=== PATIENT | female | born 1935 | race Caucasian/White ===

== ENCOUNTER 2016-12-31 13:50 | Inpatient (IN) | payer MEDICARE, OTHER ==
[~2016-12-31] VITALS: Ht 152.4 cm; Wt 42.6 kg
[2016-12-31 16:59] LABS: BASOPHILS 0.6 % (0.0-2.0); EOSINOPHILS 1.2 % (0-7); HEMATOCRIT 41.6 % (36.0-48.0); IMMATURE GRANULOCYTES 0.1 % (0-5); LYMPHOCYTES 20.3 % (15-50); MCH 31.6 pg (26.0-34.0); MCHC 33.7 g/dL (31.0-37.0); MCV 93.9 fL (80.0-100.0); MEAN PLATELET VOLUME 10.6 fL (7.4-10.4); MONOCYTES 11.9 % (2-11); NEUTROPHILS 65.9 % (40-80); PLATELET COUNT 242 10x3/uL (130-400); RBC 4.43 10x6/uL (4.00-5.40); RDW 14.2 % (11.5-14.5); WBC 10.2 10x3/uL (4.8-10.8)
[2016-12-31 17:07] LABS: UDS - AMPHET NEGATIVE QUAL (NEGATIVE); UDS - BARB NEGATIVE QUAL (NEGATIVE); UDS - BENZO NEGATIVE QUAL (NEGATIVE); UDS - COCAINE NEGATIVE QUAL (NEGATIVE); UDS - METH NEGATIVE QUAL (NEGATIVE); UDS - OPIATE NEGATIVE QUAL (NEGATIVE); UDS - PCP NEGATIVE QUAL (NEGATIVE); UDS - THC NEGATIVE QUAL (NEGATIVE)
[2016-12-31 17:08] LABS: APTT 26.6 SECONDS (22.8-39.4); INR 0.97 (0.85-1.17); PROTIME 12.8 SECONDS (11.6-15.0)
[2016-12-31 17:39] LABS: ALBUMIN 3.7 g/dL (3.4-5.0); ALKALINE PHOSPHATASE 72 U/L (46-116); ALT (SGPT) 31 U/L (10-68); BILIRUBIN - TOTAL 0.72 mg/dL (0.2-1.3); CALC OSMOLALITY 291 mosm/kg (275-300); CALCIUM 10.2 mg/dL (8.5-10.1); CARBON DIOXIDE 28.7 mmol/L (21.0-32.0); CHLORIDE - SERUM 106 mmol/L (98-107); CREATININE - SERUM 0.8 mg/dL (0.6-1.3); GLUCOSE 86 mg/dL (74-106); POTASSIUM - SERUM 3.8 mmol/L (3.5-5.1); PROTEIN - SERUM 7.3 g/dL (6.4-8.2); SODIUM 146 mmol/L (136-145); UREA NITROGEN 19 mg/dL (7-18); eGFR NON AFRICAN AMERICAN 72 mL/min (90-120)
[2016-12-31 18:01] LABS: CREATINE KINASE 295 UL (21-215)
[2016-12-31 18:07] LABS: TROPONIN-I < 0.017 ng/mL (0.000-0.060)
[2016-12-31 18:23] LABS: CKMB 4.2 U/L (0.0-3.6)
[2016-12-31 20:00] VITALS: BP 128/97
[2016-12-31 22:48] VITALS: BP 128/97; BMI 18.3
--- NOTE | 2017-01-01 02:26 | NUR ---
PATIENT ADMITTED FROM ER TO [facility]. SHE HAS A HISTORY OF FALLS, AND DEMENTIA, HAS BEEN WANDERING AT NIGHT. PATIENT HAS A FULL CODE STATUS AND IS ORIENTED TO SELF ONLY. PLEASANT AND COOPERATIVE.
--- NOTE | 2017-01-01 02:53 | NUR ---
PATIENT IN BED, ORIENTED TO SELF ONLY. SHE IS VERY CONFUSED, CONSTANTLY WORRIED SHE HAS WET THE BED. SHE HAS PULLED OFF SEVERAL PAIRS OF BRIEFS. WHEN TAKEN TO THE TOILET SHE KEEPS WIPING COMPULSIVELY AND WON'T GET OFF THE COMMODE. PATIENT REDIRECTED. CONTINUE TO MONITOR
[2017-01-01 06:44] LABS: HEMOGLOBIN A1C 4.9 % (4.8-6.0)
[2017-01-01 06:46] LABS: CHOL - HDL RATIO 2.3 ratio (2.3-4.1); LDL-HDL RATIO 1.2 ratio (1.5-3.5)
[2017-01-01 07:53] VITALS: BP 141/91
--- NOTE | 2017-01-01 11:13 | NUR ---
PT IS A HIGH ELOPEMENT RISK AND GOING THROUGHOUT THE UNIT CHECKING DOORS. PT IS A HIGH FALL RISK AND IS ROLLING AROUND IN A WHEELCHAIR WITH A FREEMAN PAD AND A BREAK AWAY BELT. FALL PRECAUTIONS MAINTAINED. NO AGGRESSION NOTED. ORIENTED TO PERSON ONLY. PT HAS NO INSIGHT INTO LIMITATIONS OR TO REALITY. REDIRECTED AND REORIENTED NEEDED BUT NO EVIDENCE OF RETAINING. DR. SAN AND DR. WALTERS TO ADDRESS MEDICATIONS SINCE PT HAD NO MEDICATIONS PRIOR TO ADMIT. WILL CONTINUE TO MONITOR AND CONTINUE WITH PLAN OF CARE.
--- NOTE | 2017-01-01 11:39 | NUR ---
PT IN HALLWAY TAKING HER CLOTHING OFF. PT UNABLE TO UNDERSTAND THAT THIS IS NOT APPROPRIATE BEHAVIOR. WILL CONTINUE TO REEDUCATE NEEDED.
[2017-01-01 15:17] VITALS: Ht 152.4 cm; Wt 42.6 kg
--- NOTE | 2017-01-01 17:46 | NUR ---
PT HALLUCINATING AND SEEING WATER EVERY WHERE.
--- NOTE | 2017-01-01 18:31 | PSY ---
PATIENT NAME:CHAYO GRIMES MEDICAL RECORD: [id number] : 31 LOCATION:[facility] ADMISSION DATE: 12/31/16 ACCOUNT: [id number] PSYCHIATRIC EVALUATION DATE OF EVALUATION: 01/01/17 IDENTIFYING DATA: This is the first Prison admission and first known psychiatric hospitalization for this 81-year-old white female. HISTORY OF PRESENT ILLNESS: This patient has shown a very severe deterioration over the last 6 weeks. She has lost about 20 pounds due to poor appetite. She has become extremely confused, agitated and disoriented. She is beginning to exhibit somatic delusions. She states that everything around her is wet. She cannot follow simple commands. She is avoidant of eating and appears to be suspicious that something is wrong with her food. Ambulation is also severely decreased. She, at the present time, is a high fall risk. She has exhibited wandering behavior at home. Her elderly cannot care for her in her present state. Because of severely worsening dementia and the emergence of psychotic features, the patient is now admitted. PAST MEDICAL HISTORY: Significant for osteoporosis. FAMILY HISTORY: Noncontributory. MEDICATION: No listed medications at the time of admission. ALLERGIES: None listed. SOCIAL HISTORY: The patient is . She has 2 sons and 1 daughter. She does not have substance abuse issues. She is not a smoker. REVIEW OF SYSTEMS: Noncontributory. MENTAL STATUS EXAMINATION: On exam, the patient is indeed quite confused. Mood is very anxious. Affect is shallow and brittle. Speech is tangential and rambling. Content of thought is positive for delusional ideation of a somatic nature. The patient is oriented only to person. She shows global impairment in all phases of memory. She has great difficulty following even simple commands. 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 AXIS II: No diagnosis. AXIS III: Anorexia, osteoporosis by history. AXIS IV: Severe. AXIS V: 32. PLAN: 1. We will admit for further medical and psychiatric workup. 2. Adjustment of medications as appropriate. 3. Work with family in referring physician regarding aftercare. TRANSINT:[id number] Voice Confirmation ID: [id number] DOCUMENT ID: [id number] TALIB SAN III, MD at 7493 CC: [id number] DICTATION DATE: 01/01/17 1226 REAL ESTATE INSPECTOR: 01/01/17 1240 ADM IN [place] [id number] [place] [id number]
[2017-01-01 19:00] VITALS: BP 113/64
[2017-01-01 21:00] VITALS: BP 113/64
--- NOTE | 2017-01-02 01:16 | NUR ---
B) Recieved patient in the hallway in a wheelchair with an alarm belt, Alert and oriented to self, hyperverbal, demanding, and exit seeking, I) Administered perscribed medications, redirected several times, R) Medication compliant, does not retain information, difficult to redirect, P) Continue plan of care, continue to monitor.
[2017-01-02 08:02] LABS: APPEARANCE CLEAR (CLEAR); BILIRUBIN NEGATIVE (NEGATIVE); COLOR YELLOW (YELLOW); GLUCOSE NEGATIVE (NEGATIVE); KETONE SMALL mg/dL (NEGATIVE); LEUKOCYTE ESTERASE NEGATIVE (NEGATIVE); NITRITE NEGATIVE (NEGATIVE); PROTEIN NEGATIVE (NEGATIVE); SPECIFIC GRAVITY 1.015 (1.005-1.020); UROBILINOGEN NORMAL (NORMAL)
[2017-01-02 08:30] VITALS: BP 129/66
--- NOTE | 2017-01-02 11:09 | NUR ---
Pt self-prepells in W/C. Alarm is attached. Fall risk. Pt is confused, argumentative, and at times physically aggressive. Continually trying to leave pt area. Medications given as ordered. Reorientation and Redirection as needed. Pt remains confused. Will continue to monitor. Continue plan of care.
--- NOTE | 2017-01-02 15:58 | NUR ---
Pt self-propelling in wheelchair. Pt states that her friends call her "Mary Ann" and she prefers that to Siomara. Had a nice conversation with patient about her who called earlier to check on her. Informed pt of this. Pt was pleased to hear this.
[2017-01-02 20:27] VITALS: BP 103/54
--- NOTE | 2017-01-03 04:17 | NUR ---
B) Recieved patient in the day room in a wheelchair, alert and oriented to self, confused and exit seeking at times, I) Administered perscribed medications, redirected as needed, R) Medication compliant, bizarre behavior at times: AEB wearing a disposable brief as her 'rain hat'social with peers, P) Continue plan of care, continue to monitor.
[2017-01-03 09:40] VITALS: BP 121/70
--- NOTE | 2017-01-03 12:57 | NUR ---
NUTRITION MONITORING & EVAL CHART REVIEWED. INTAKE RECORDS INDICATE POOR PO INTAKE. MEGACE STARTED 01/01. WILL CONTINUE TO PROVIDE DIET, MONITOR PO INTAKE. RD FOLLOWING
--- NOTE | 2017-01-03 15:23 | NUR ---
(B)RECEIVED PATIENT LAYING IN BED. ORIENTED TO SELF, MONTH AND DATE. RELATES SHE IS AT "A PLACE WHERE YOU GO WHEN YOU NEED HELP" BUT WAS NOT AWARE SHE IS IN A HOSPITAL. PATIENT RELATES "I WAS FALLING ALL THE TIME." SOCIALIZES WITH OTHER PEERS. MOBILE ON UNIT IN A WHEELCHAIR. WOULD BARE WEIGHT WHEN TRANSFERRING THIS AM HOWEVER DID WALK WITH PHYSICAL THERAPY THIS AM. (I)ADMINISTER MEDS AND MONITOR COMPLIANCE. REORIENT NEEDED. (R)MED COMPLIANT. UNABLE TO REORIENT DUE TO IMPAIRED SHORT TERM MEMORY. CONTINUES TO WANDER ON UNIT IN WHEELCHAIR. (P)CONTINUE POC AND MAINTAIN FALL PRECAUTIONS.
[2017-01-03 19:30] VITALS: BP 135/67
--- NOTE | 2017-01-04 04:36 | NUR ---
PATIENT IN BATHROOM, NEXT TO DAYROOM. SHE IS COMPULSIVE ABOUT TOILETING AND THINKS SHE'S WET. USES THE BATHROOM, THAN GOES BACK AGAIN. PATIENT WAS REDIRECTED. COMPLIANT WITH MEDICATION, NO SIGNS OF HALLUCINATING, SULLEN IN MOOD. FALL PRECAUTIONS IN PLACE, CONTINUE TO MONITOR, CONTINUE PLAN OF CARE.
[2017-01-04 08:27] VITALS: BP 104/60
--- NOTE | 2017-01-04 09:42 | PN ---
PATIENT:CHAYO GRIMES MEDICAL RECORD: [id number] LOCATION:[facility] ADMISSION DATE: 12/31/16 PROGRESS NOTE DATE OF SERVICE: 01/02/2017 SUBJECTIVE: No new complaint. OBJECTIVE: The patient is rather anxious. She has been exhibiting visual hallucinations. Speech is very disorganized. On exam, mood is slightly anxious. Affect is shallow. Speech is tangential. Content of thought is positive for hallucinations. Sensorium shows no changes. ASSESSMENT: No change in diagnosis. PLAN: 1. Add Risperdal 0.25 mg at bedtime. 2. Continue other current medications. 3. Continue supportive therapy. TRANSINT:[id number] Voice Confirmation ID: [id number] DOCUMENT ID: [id number] TALIB SAN III, MD at 0942 CC: [id number] DICTATION DATE: 01/02/17 1223 MANAGER ETL: 01/02/17 1351 ADM IN [place] [id number] [place] [address]
--- NOTE | 2017-01-04 09:42 | PN ---
PATIENT:CHAYO GRIMES MEDICAL RECORD: [id number] LOCATION:[facility] [address] ADMISSION DATE: 12/31/16 PROGRESS NOTE DATE OF SERVICE: 01/03/2017 SUBJECTIVE: No new complaint. OBJECTIVE: Staff reports the patient continues to show delusional ideation about being wet. She does require some redirection from time to time. On exam, mood is euthymic. Affect rather shallow and childlike. Speech is terse. Content of thought exhibits delusional ideation. Sensorium shows no change. ASSESSMENT: No change in diagnosis. PLAN: 1. Continue current medications. 2. Continue supportive therapy. TRANSINT:[id number] Voice Confirmation ID: [id number] DOCUMENT ID: [id number] TALIB SAN III, MD at 0942 CC: [id number] DICTATION DATE: 01/03/17 1306 CLINICAL NURSE EDUCATOR: 01/03/17 1554 ADM IN [facility] [address] [place] [address]
--- NOTE | 2017-01-04 14:40 | NUR ---
(B)RECEIVED PATIENT SITTING IN A CHAIR AT THE NURSE'S STATION. ORIENTED TO SELF ONLY. POOR INSIGHT INTO THE REASON FOR HOSPITALIZATION. ATTEMPTS TO INTERACT WITH PEERS HOWEVER DOES NOT FOLLOW TOPIC OF CONVERSATION. MOBILE IN WHEELCHAIR AND WALKED WITH PHYSICAL THERAPY TODAY. NO HALLUCINATIONS OBSERVED NOR REPORTED. (I)ADMINISTER MEDS AND MONITOR COMPLIANCE. REORIENT NEEDED. (R)MED COMPLIANT. CONTINUES TO WANDER ON UNIT IN WHEELCHAIR. POOR REORIENTATION DUE TO IMPAIRED ABILITY TO RETAIN INFORMATION. PATIENT IS [place] MAKING INTERACTION DIFFICULT IN ADDITION TO IMPAIRED ABILITY TO COMPREHEND AND PROCESS INFORMATION. (P)CONTINUE POC AND MAINTAIN FALL PRECAUTIONS.
[2017-01-04 19:30] VITALS: BP 154/76
--- NOTE | 2017-01-05 01:01 | NUR ---
B) Recieved sitting in the day room in a chair , alert and oriented to self, social with peers, I) Administered perscribed medications, redirected and oriented as needed, R) Medication compliant, resting now quietly in bed, P) Continue plan of care, continue to monitor.
[2017-01-05 07:00] VITALS: BP 107/66
[2017-01-05 09:36] VITALS: BP 107/66
--- NOTE | 2017-01-05 13:57 | NUR ---
RECEIVED THIS AM SITTING IN WHEELCHAIR.IS ORIENTED X 3 BUT HAS SOME CONFUSION.IS SLOW TO RESPOND VERBALLY BUT DOES FOLLOW COMMANDS.DRESSING INTACT TO LEFT ARM,CLEAN AND DRY.PROPELLS SELF IN WHEELCHAIR BUT HAS TO BE REMINDED FREQUENTLY TO NOT STAND UP BY HERSELF DUE TO UNSTEADY GAIT.WILL CONTINUE WITH PLAN OF CARE,MONITOR FOR CHANGES AND SAFETY.
[2017-01-05 19:30] VITALS: BP 130/77
--- NOTE | 2017-01-05 22:04 | NUR ---
B) PATIENT IS AWAKE AND ALERT, SHE KNOWS ONLY HER NAME SHE DOES NOT KNOW WHERE SHE IS LOCATED, BUT SHE IS PLEASANT, SHE SELF PROPELS IN THE W/C. I) PROVIDE PRESCRIBED MEDS, REDIRECT NEEDED. SHE HAS NOT MADE ANY COMMENTS ABOUT BEING WET OR HAVING WET FEET. R) PATIENT IS COMPLIANT WITH MEDS. P) CONTINUE PLAN OF CARE.
--- NOTE | 2017-01-06 08:51 | PN ---
PATIENT:CHAYO GRIMES MEDICAL RECORD: [id number] LOCATION:[facility] ADMISSION DATE: 12/31/16 PROGRESS NOTE DATE OF SERVICE: 01/04/2017 SUBJECTIVE: No new complaint. OBJECTIVE: The patient is active about the unit. She is cooperative. She continues to be compulsive about attempting to clean herself because she believes she is wet. On exam, mood is slightly anxious. Affect is very shallow. Speech is repetitive. Content of thought is negative for clear cut psychosis with exception of somatic delusions. Sensorium is unchanged. ASSESSMENT: No change in diagnosis. PLAN: 1. Continue current medications. 2. Continue supportive therapy. TRANSINT:[id number] Voice Confirmation ID: [id number] DOCUMENT ID: [id number] TALIB SAN III, MD at 0851 CC: [id number] DICTATION DATE: 01/04/17 1115 INSURANCE SERVICE REPRESENTATIVE: 01/04/17 1128 ADM IN [place] [address] [place] [address]
[2017-01-06 09:12] VITALS: BP 95/63
--- NOTE | 2017-01-06 13:19 | NUR ---
SW LEFT MESSAGE ON APS DONN'S CELL TO ALERT OF PT'S SITUATION.
--- NOTE | 2017-01-06 13:53 | NUR ---
B.) Alert and oriented to name and place, has no ingisht to reason for hospitalization, self propeling in W/C. I.) Administer medication and monitor compliance. Monitor for any hallucinations. Redirect and reorient as need. R.) Compliant with medications, no evidence of reorientation to time and situation. No hallucinations. Safety maintained.
[2017-01-06 20:23] VITALS: BP 87/49
--- NOTE | 2017-01-06 20:57 | NUR ---
RECEIVED IN HALLWAY. SITTING IN WHEELCHAIR. ASSIST TO TRANSFERE TO BED. NO SIGNS OF HALLUCINATIONS. CALM AND COOPERATIVE WITH CARE AND ASSESSMENTS. REINFORCE FALLS SAFETY. PM MEDS GIVEN ORDERED. RESTING EYES CLOSED AT THIS TIME. CONTINUE PLAN OF CARE
[2017-01-07 08:13] VITALS: BP 116/66
--- NOTE | 2017-01-07 13:20 | NUR ---
Nutrition Follow Up: Chart reviewed. Pt is eating 25% meal avg on a regular diet. She is receiving Ensure TID and Magic Cup daily. +BM 01/01/17. No new wt/labs to assess. Meds noted including Megace. Pt continues with poor po intake. Rec continue current diet, supplement regimen. Rec continue Megace. Rec consider bowel regimen - pt with no BM x [address] following.
--- NOTE | 2017-01-07 16:09 | NUR ---
ORIENTED TO PERSON ONLY AND PLACE AT TIMES. MEDICATIONS ADMINISTERED ORDERED. NO AGGRESSION NOTED. FLAT AFFECT. REORIENT PT FREQUENTLY BUT NO EVIDENCE OF RETAINING NOTED. DENIES SI OR DEPRESSION. NO HALLUCINATIONS NOTED. PT DOES HAVE DIFFICULTY EXPRESSING NEEDS. PT REQUIRES MULTIPLE TIMES AT DIRECTING HER TO ACCOMPLISH TASKS. SHE IS UNABLE TO DO MORE THAN 1 THING AT A TIME. FALL PRECAUTIONS MAINTAINED. WILL CONTINUE TO MONITOR AND CONTINUE WITH PLAN OF CARE.
[2017-01-07 20:13] VITALS: BP 124/63
--- NOTE | 2017-01-08 00:23 | NUR ---
RECEIVED IN BEDROO. LAYING IN BED WITH EYE CLOSED. RESPONDS TO TOUCH. CALM AND COOPERATIVE WITH CARE AND ASSESSMENT. NO SIGNS OF HALLUCINATIONS. REIFORCE FALLS SAFETY. PM MEDS GIVEN ORDERED. RESTING EYES CLOSED AT THIS TIME. CONTINUE PLAN OF CARE
--- NOTE | 2017-01-08 08:11 | PN ---
PATIENT:CHAYO GRIMES MEDICAL RECORD: [id number] LOCATION:[facility] ADMISSION DATE: 12/31/16 PROGRESS NOTE DATE OF SERVICE: 01/07/2017 SUBJECTIVE: No coherent complaint. OBJECTIVE: The patient remains extremely confused. She cannot follow even 2-step commands. She appears at times to be attending to internal stimuli. She requires a tremendous amount of redirection. Her home situation is extremely complicated. Her is currently in the intensive care unit at [facility]. The patient has no one to care for her at this moment. On exam, mood is slightly anxious. Affect is very shallow. Speech is tangential and for the most part, incoherent. Content of thought appears to be positive for her response to internal stimuli (hallucinations of auditory in nature). Sensorium shows no change. ASSESSMENT: No change in diagnosis. PLAN: 1. Continue current medications. 2. Continue supportive therapy. TRANSINT:[id number] Voice Confirmation ID: [id number] DOCUMENT ID: [id number] TALIB SAN III, MD at 0811 CC: [id number] DICTATION DATE: 01/07/17 1224 DIALYSIS REGISTERED NURSE: 01/07/17 1944 ADM IN [facility] [address] [place] [address]
--- NOTE | 2017-01-08 08:11 | PN ---
PATIENT:CHAYO GRIMES MEDICAL RECORD: [id number] LOCATION:[facility]112 ADMISSION DATE: 12/31/16 PROGRESS NOTE DATE OF SERVICE: 01/06/2017 SUBJECTIVE: No new complaint. OBJECTIVE: The patient continues to show grossly delusional ideation. She is florid somatic delusions. Additional history obtained indicates that the patient's is now in the intensive care unit at [facility] with severe mental status changes of his own. The patient's current social situation is quite difficult. The APS may be involved. On exam, the patient's mood is slightly anxious. Affect is very shallow, childlike and disorganized. Speech is tangential and nonfocused. Content of thought exhibits delusional ideation regarding bodily fluids and paranoid ideation as well. The patient remains oriented only to person. ASSESSMENT: No change in diagnosis. PLAN: 1. We will adjust medications as indicated. 2. Continue supportive therapy. TRANSINT:[id number] Voice Confirmation ID: [id number] DOCUMENT ID: [id number] TALIB SAN III, MD at 0811 CC: [id number] DICTATION DATE: 01/06/17 1231 TECHNICAL TRAINING INSTRUCTOR: 01/06/171958 ADM IN [facility] [address] [place] [address]
[2017-01-08 08:36] VITALS: BP 105/67
--- NOTE | 2017-01-08 12:29 | NUR ---
B) Received pt in day room, meds admin per orders, compliant with all meds, pleasant mood, no hallucinations or delusions noted. I) Admin medications as ordered and provide group activity as directed, encouraging participation. R) No s/s adverse reaction to medications, no adverse behaviors noted. P) Cont plant of care including meds and group activity.
[2017-01-08 19:30] VITALS: BP 131/88
--- NOTE | 2017-01-08 21:55 | PN ---
PATIENT:CHAYO GRIMES MEDICAL RECORD: [id number] LOCATION:[facility]uiar112 ADMISSION DATE: 12/31/16 PROGRESS NOTE DATE OF SERVICE: 01/08/2017 Followup SUBJECTIVE: No new complaint. OBJECTIVE: The patient continues to exhibit evidence of psychosis. During the interview, she is very distractible and appears to be attending to internal stimuli. She has great difficulty verbalizing her needs, but appears to be exhibiting psychosis as described above. During the exam, the patient's mood is anxious and perplexed. Affect is shallow and brittle. Speech is very disorganized. Content of thought as noted above. Sensorium shows no changes. ASSESSMENT: No change in diagnosis. PLAN: 1. Continue current dose of Risperdal for psychotic symptoms. 2. Continue close observation, other medications and supportive therapy. TRANSINT:[id number] Voice Confirmation ID: [id number] DOCUMENT ID: [id number] TALIB SAN III, MD at 2155 CC: [id number] DICTATION DATE: 01/08/17 112 SENIOR ADMINISTRATIVE ASSISTANT: 01/08/17 1938 ADM IN [facility] [address] [place] [id number]
--- NOTE | 2017-01-08 23:29 | NUR ---
B) Recieved patient in a wheelchair in the day room, alert and oriented to self, confused and unaware of where she is , I) Administered perscribed medications with pudding R) Medication compliant, resting no quietly in bed, P) Continue plan of care, continue to monitor.
[2017-01-09 09:32] VITALS: BP 128/60
--- NOTE | 2017-01-09 11:00 | NUR ---
B) PATIENT IS [place] AND IT IS DIFFICULT AT TIMES TO CONVERSE WITH HER, SHE HAS BEEN LETHARGIC TODAY. AFTER HER MEDICATION THIS AM AND AFTER PT WALKED HER, SHE BECAME LETHARGIC AND FELL ASLEEP. SHE WAS SLUMPED OVER IN HER CHAIR AND IT LOOKED LIKE HER LIPS WERE BLUE, AWAKENED PATIENT AND ASKED HER TO COUGH AND DEEP BREATH, CHECKED HER SPO2 AND IT SHOWED 97%. SHE IS LETHARGIC AND SHE IS HAVING A DIFFICULT TIME UNDERSTANDING. I) PROVIDE PRESCRIBED MEDS, REDIRECT NEEDED TO APPROPRIATE UNIT MILIEU. R) PATIENT IS COMPLIANT WITH MEDS, BUT SHE REMAINS SLEEPY. P) CONTINUE PLAN OF CARE.
[2017-01-09 20:24] VITALS: BP 118/70
--- NOTE | 2017-01-10 02:01 | NUR ---
PATIENT IN BATHROOM BY DAYROOM. SHE HAD TAKEN OFF ALL HER CLOTHES BECAUSE SHE SAID THEY WERE "WET", EVEN THOUGH THEY WERE DRY. SHE WAS GIVEN A FRESH SET OF SCRUBS AND REORIENTED. PATIENT ORIENTED TO SELF ONLY. SHE IS VERY CALM, PLEASANT AND COOPERATIVE WITH MEDICATION. CONTINUE TO MONITOR,CONTINUE PLAN OF CARE.
[2017-01-10 09:01] VITALS: BP 99/55
--- NOTE | 2017-01-10 10:50 | NUR ---
B.) Alert and oriented to self only, and some what to place. Self propels in W/C. Has difficulty understanding directions at times. I.) Administer prescribed medications and monitor compliance. Redirect and reorient as need. Monitor for any hallucinations. R.) Compliant with medications. Has tactile hallucination that her hands are wet." I need to dry my hands" rubbing hands aggressively, hands are dry. Refocused patient to reality versus non reality. No aggression. Safety maintained. P.) Continue with plan of care.
[2017-01-10 21:50] VITALS: BP 116/65
--- NOTE | 2017-01-11 02:10 | NUR ---
B) Recieved sitting in her wheelchair in the day room, alert and oriented to self, calm and cooperative with care and assessment. I) Administered perscribed medications, redirected as needed, R) Medication compliant, disrobes at times, P) Continue plan of care, continue to monitor.
[2017-01-11 09:28] VITALS: BP 118/79
--- NOTE | 2017-01-11 11:57 | PN ---
PATIENT:CHAYO GRIMES MEDICAL RECORD: [id number] LOCATION:[facility] ADMISSION DATE: 12/31/16 PROGRESS NOTE DATE OF SERVICE: 01/10/2017 SUBJECTIVE: The patient's case was discussed with staff. She has no new complaint. OBJECTIVE: The patient is in good behavioral control with limited insight about her condition. She tolerates her medicines well. ASSESSMENT: No change in diagnoses. PLAN: Current medicines and therapies have been reviewed, both will be maintained. Her long-term prognosis is guarded. TRANSINT:[id number] Voice Confirmation ID: [id number] DOCUMENT ID: [id number] TANVI HUTTON MD at 1157 CC: [id number] DICTATION DATE: 01/10/17 1439 HOISTER: 01/10/17 1805 ADM IN [place] [id number] [place] [address]
--- NOTE | 2017-01-11 12:24 | NUR ---
Received alert and oriented to self only, blank flat stare on face, would not respond to where she is and why. Administer medications and monitor compliance. Redirect and reorient as need. Monitor for any halluciantion. Maintain safety. Compliant with medications, no hallucinating noted, self propels in W/C, difficult time following directions at times, she will nearly roll over others feet and disregard directions to move over until assisted per nurse, attempted to undress in day room by pulling her shirt up with no evidence of redirecting to not do so, required consistent verbal instruction and demonstration before she stopped. Safety maintained. Continue with plan of care.
[2017-01-11 19:30] VITALS: BP 126/98
--- NOTE | 2017-01-12 01:28 | NUR ---
B) Recieved patient sitting in the day room alert and oriented to self, calm and quiet, keeping to herself, abulates with own walker, I) Administered perscribed medications, redirected as needed, monitored for falls and safety, R) Medication compliant, resting now quietly in bed, P) Continue plan of care, continue to monitor.
[2017-01-12 07:00] VITALS: BP 126/74
--- NOTE | 2017-01-12 14:44 | NUR ---
PT RECEIVED IN W/C SITTING IN HALLWAY IN FRONT OF NURSE STATION. PT IS ALERT AND ORIENTED TO SELF ONLY. PT DENIES PAIN. NO HALLUCINATIONS OR DELUSIONS ARE NOTED OR REPORTED. PT HAS BEEN COOPERATIVE WITH STAFF AND IS COMPLIANT WITH MED'S AND CARE. NO AGGRESION NOTED. PT IS CALM, QUITE AND WITHDRAWN. SAFETY MEASURES ARE IMPLEMENTED. PT IS REDIRECTED AND REORIENTED NEEDED. WILL CONTINUE WITH CURRENT PLAN OF CARE. WILL CONTINUE TO MONITOR.
[2017-01-12 19:30] VITALS: BP 115/86
--- NOTE | 2017-01-12 20:26 | NUR ---
RECEIVED IN DAYROOM. SITTING IN WHEELCHAIR WITH PEERS AT HER SIDE. EYES CLOSED. RESPONDS TO VOICE. MOVES ABOUT AT TIMES SOCIALIZING WITH PEERS AT TIMES. CONFUSED. NO SIGNS OF AGGRESSION. ENCOURAGE TO EXPRESS NEEDS. CONTINUES TO MOVE ABOUT IN HER WHEELCHAIR. CONTINUE PLAN OF CARE
[2017-01-13 08:08] VITALS: BP 124/73
--- NOTE | 2017-01-13 10:30 | PN ---
PATIENT:CHAYO GRIMES MEDICAL RECORD: [id number] LOCATION:[facility] [address] ADMISSION DATE: 12/31/16 PROGRESS NOTE DATE OF SERVICE: 01/09/2017 SUBJECTIVE: No coherent complaint. OBJECTIVE: Case management has received the news that the patient's son will be coming in from [place] to help manage the situation. Her remains hospitalized at [facility]. The patient herself continues to be extremely confused and disorganized and cannot following even simple commands. On exam, mood is anxious, affect is constricted. Speech is rambling and virtually incoherent. Content of thought shows no change. Sensorium shows no change. ASSESSMENT: No change in diagnosis. PLAN: 1. Maintain current medication. 2. Continue supportive therapy. TRANSINT:[id number] Voice Confirmation ID: [id number] DOCUMENT ID: [id number] TALIB SAN III, MD at 1030 CC: [id number] DICTATION DATE: 01/09/17 1209 RN TEAM LEADER: 01/09/17 1822 ADM IN [place] [id number] [place] [address]
--- NOTE | 2017-01-13 16:41 | NUR ---
Received this am alert and oriented to self only, calm and cooperative with care. Administer prescribed medications and monitor compliance. Redircet and reorient as need. Monitor for any hallucinations and refocus to reality versus nonreality. Encourage group participation. Monitor safety. Compliant with medications, cooperative with unit milieu, no observed or reported hallucinations. Self propels in W/C, safety maintained. Continue with plan of care.
--- NOTE | 2017-01-13 16:58 | PN ---
PATIENT:CHAYO GRIMES MEDICAL RECORD: [id number] LOCATION:[facility] ADMISSION DATE: 12/31/16 PROGRESS NOTE DATE OF SERVICE: 01/13/2017 SUBJECTIVE: No new complaint. OBJECTIVE: Staff report the patient is finally beginning to eat a little bit better. She is somewhat more cooperative; however, she remains very confused. On exam, mood is perplexed. Affect is distant. Speech is tangential. Content of thought is negative for overt psychosis. Sensorium shows no change. ASSESSMENT: No change in diagnosis. PLAN: 1. Maintain current medications. 2. Continue supportive therapy. TRANSINT:[id number] Voice Confirmation ID: [id number] DOCUMENT ID: [id number] TALIB SAN III, MD at 1658 CC: [id number] DICTATION DATE: 01/13/17 1146 QUALITY ASSOCIATE: 01/13/17 1354 ADM IN [facility] [address] [place] [address]
[2017-01-13 20:00] VITALS: BP 102/60
--- NOTE | 2017-01-13 20:52 | NUR ---
RECEIVED IN DAYROOM. SITTING IN QUIETLY IN WHEELCHAIR. CALM AND COOPERATIVE WITH CARE AND ASSESSMENT. NOT SOCIALIZING WITH STAFF OR PEERS. NO SIGNS OF HALLUCINATIONS. REDIRECT AND REORIENT NEEDED. REINFORCE FALLS SAFETY. CONTINUES TO SIT QUIETLY IN WHEELCHAIR. CONTINUE PLAN OF CARE
[2017-01-14 09:02] VITALS: BP 116/68
--- NOTE | 2017-01-14 18:34 | NUR ---
RECEIVED THIS AM SITTING IN WHEELCHAIR,IS VERY UNSTABLE ON FEET.COMPLIANT WITH MEDS CRUSHED AND TAKEN IN PUDDING.IS ORIENTED TO SELF ONLY.WILL CONTINUE WITH PLAN OF CARE,MONITOR FOR CHANGES AND SAFETY.
--- NOTE | 2017-01-14 19:50 | NUR ---
RECEIVED IN DINING ROOM. MOVING ABOUT IN WHEELCHAIR. CALM AND COOPERATIVE WITH CARE ABND ASSESSMENT. SOCIALIZING WITH PEERS AT TIMES. NO SIGNS OF HALLUCINATIONS. REINFORCE FALLS SAFETY. CONTINUES TO SIT IN WHEELCHAIR SOCIALIZING AT TIMES. CONTINUE PLAN OF CARE
[2017-01-14 22:30] VITALS: BP 114/61
[2017-01-15 08:44] VITALS: BP 115/73
--- NOTE | 2017-01-15 09:39 | NUR ---
Nutrition Follow Up: Chart reviewed. Pt is eating 55% meal avg on a regular diet. She is receiving Ensure with meals and a magic cup with dinner. No new wt to assess. +BM 01/10/17 - no BM x 4 days. No new labs. Meds noted including Megace. Pt with improving po intake. Rec continue current diet, supplement regimen. Rec continue appetite stimulant. Will continue to provide selective menus and honor food preferences. RD following.
--- NOTE | 2017-01-15 15:04 | NUR ---
Received this am alert and oriented to name and place. Calm and cooperative with care. Compliant with medications. No hallucinations noted or reported. Self propels in W/C, safety maintained. Continue plan of care.
[2017-01-15 20:00] VITALS: BP 116/60
--- NOTE | 2017-01-15 23:35 | NUR ---
B) recieved patient sitting in a chair in the day room, alert and oriented to self, calm and cooperative with care and assessment, I) Administered perscribed medicatios, monitored for safety and falls, R) Medications compliant, resting now quietly in bed, P) Continue plan of care.
[2017-01-16 09:05] VITALS: BP 127/73
--- NOTE | 2017-01-16 10:26 | PN ---
PATIENT:CHAYO GRIMES MEDICAL RECORD: [id number] LOCATION:[facility] ADMISSION DATE: 12/31/16 PROGRESS NOTE DATE OF SERVICE: 01/14/2017 SUBJECTIVE: No new complaint. OBJECTIVE: The patient is actively working on discharge plans. There is a good possibility that she will be admitted to the [facility] at least briefly. The patient did cooperate with physical therapy and was able to walk successfully. She is tolerating medication well. On exam, mood is euthymic. Affect is bland and pleasant. Speech is rather tangential. Content of thought is negative for overt psychosis. Sensorium is unchanged. ASSESSMENT: No change in diagnosis. PLAN: 1. Maintain current medications. 2. Continue supportive therapy. TRANSINT:[id number] Voice Confirmation ID: [id number] DOCUMENT ID: [id number] TALIB SAN III, MD at 1026 CC: [id number] DICTATION DATE: 01/14/17 1217 BUSINESS PERFORMANCE MANAGER: 01/14/17 1229 ADM IN [place] [id number] [place] [address]
--- NOTE | 2017-01-16 12:51 | NUR ---
(B)RECEIVED PATIENT SITTING IN A CHAIR AT THE NURSE'S STATION. ORIENTED TO SELF ONLY. POOR INSIGHT INTO THE REASON FOR HOSPITALIZATION. WALKS WITH PHYSICAL THERAPY AND IS MOBILE ON UNIT IN A WHEELCHAIR. SLOW TO RESPOND. ISOLATES AND SITS ALONE. PATIENT WAS SITTING AT THE NURSE'S STATION BEFORE BREAKFAST AND WAS OBSERVED TRYING TO PULL HER SHIRT OFF. (I)ADMINISTER MEDS AND MONITOR COMPLIANCE. REDIRECT FOR INAPPROPRIATE BEHAVIORS. (R)MED COMPLIANT. PATIENT RESPONDS TO POSITIVE REDIRECTION HOWEVER IS FORGETFUL REQUIRING CLOSE SUPERVISION AND FREQUENT REDIRECTION/REORIENTATION. (P)CONTINUE POC AND MAINTAIN FALL PRECAUTIONS.
--- NOTE | 2017-01-16 14:31 | PN ---
PATIENT:CHAYO GRIMES MEDICAL RECORD: [id number] LOCATION:[facility] ADMISSION DATE: 12/31/16 PROGRESS NOTE DATE OF SERVICE: 01/15/2017 SUBJECTIVE: The patient's case was discussed with staff. She has no new complaint. OBJECTIVE: The patient is in good behavioral control and has not been aggressive. She has poor insight about her situation. TRANSINT:[id number] Voice Confirmation ID: [id number] DOCUMENT ID: [id number] TANVI HUTTON MD at 1431 CC: [id number] DICTATION DATE: 01/15/17 1417 TENTERER: 01/15/17 1534 ADM IN [place] [id number] [place] [address]
[2017-01-16 19:30] VITALS: BP 132/61
--- NOTE | 2017-01-16 22:07 | PN ---
PATIENT:CHAYO GRIMES MEDICAL RECORD: [id number] LOCATION:[facility] ADMISSION DATE: 12/31/16 PROGRESS NOTE DATE OF SERVICE: 01/16/2017 SUBJECTIVE: No new complaint. OBJECTIVE: Overall, much better. The patient is cooperative in terms of taking medication. She is more active about the unit. On exam, mood is euthymic. Affect is bland and constricted. Speech is terse. Content of thought shows no overt psychosis. Sensorium is unchanged. ASSESSMENT: No change in diagnosis. PLAN: 1. Maintain current medication. 2. Continue supportive therapy. TRANSINT:[id number] Voice Confirmation ID: [id number] DOCUMENT ID: [id number] TALIB SAN III, MD at 2207 CC: [id number] DICTATION DATE: 01/16/17 1147 SEISMOGRAPH COMPUTER: 01/16/17 1343 ADM IN [place] [id number] [place] [id number]
--- NOTE | 2017-01-17 01:18 | NUR ---
B) Recieved sitting in a wheelchair in the day room, alert and oriented to self, confused and unaware of surroundings, I) Administered perscribed medications, monitored for falls and safety, R) Medication compliant, withdrawn and keeping to herself, P) Continue plan of care,
[2017-01-17 08:36] VITALS: BP 118/60
--- NOTE | 2017-01-17 12:00 | NUR ---
B) PATIENT IS TO D/C TODAY TO [facility]. PATIENT IS CONFUSED, SHE IS NOT HAVING DELUSIONS OF WATER, SHE IS INUPIAT AND SHE SELF PROPELS IN W/C. PATIENT IS A FALLS RISK AND HAS TO STAY WITH STAFF, SHE ALSO HAS TO BE ASSISTED TO TOILET OR SHE TRY TO USE A WHOLE ROLL OF TOILET TISSUE. I) PROVIDE PRESCRIBED MEDS. R) PATIENT IS COMPLIANT WITH MEDS CRUSHED IN PUDDING. P) CONTINUE PLAN TO D/C.
[2017-01-17] MEDS ORDERED: MEGACE ES625 MG/5 M PO (12:11)
[2017-01-17] MEDS ORDERED: ARICEPT5 MG PO (12:11)
[2017-01-17] MEDS ORDERED: SENOKOT-S TABLE1 TAB PO (12:12)
[2017-01-17] MEDS ORDERED: RISPERDAL0.5 MG PO (12:12)
--- NOTE | 2017-01-17 13:08 | NUR ---
JEROMY LEFT VM ON SON'S PHONE ABOUT DC TODAY AT 1530
--- NOTE | 2017-01-17 14:36 | NUR ---
CALLED REPORT TO THE [facility], ALL PAPERWORK FAXED D/C ORDERS AND MAR, PATIENT IS PACKED AND READY TO D/C, HARD COPY MADE AND WILL GIVE TO THE THRESHING DEPARTMENT SUPERVISOR ON D/C.
--- NOTE | 2017-01-17 15:05 | NUR ---
[facility] RAW STOCK DYEING MACHINE TENDER HERE TO SONG WRITER PATIENT, SHE IS PACKED, HARD COPY OF D/C ORDER AND MAR GIVEN TO RAW STOCK DYEING MACHINE TENDER. PATIENT ASSISTED TO VEHICLE WITH RAW STOCK DYEING MACHINE TENDER AND OUR STAFF.
--- NOTE | 2017-01-19 06:18 | DS ---
PATIENT:CHAYO GRIMES :31 MEDICAL RECORD: [id number] DISCHARGE SUMMARY ADMISSION DATE: 12/31/16 DISCHARGE DATE: 01/17/17 DATE OF ADMISSION: 12/31/2016 DATE OF DISCHARGE: 01/17/2017. HISTORY OF PRESENT ILLNESS: This patient presented with a history of significant deterioration over the last 6 weeks. She has lost about 20 pounds due to poor appetite. She had been exhibiting psychotic symptoms in the form of somatic delusions. She also was showing global memory impairment. For further details, please see previously dictated history. COURSE IN THE HOSPITAL: The patient was seen in consultation by Dr. Martins. Dr. Martins noted the presence of osteoporosis and anorexia, but no other significant medical problems. During the course of the hospitalization, the patient was started on Megace for her poor appetite. She was placed on Aricept 5 mg h.s., this was increased to 10 mg h.s. discharge. The patient was also started on Risperdal 0.25 mg h.s. The patient showed a gradual improvement in terms of her agitation. Arrangements were made with the family for fpc placement. 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 AXIS II: No diagnosis. AXIS III: Osteoporosis -- improved. AXIS IV: Moderate. AXIS V: 38. PLAN: 1. The patient is discharged on current medications. 2. Diet and activities as tolerated. 3. Follow up through primary care physician. TRANSINT:[id number] Voice Confirmation ID: [id number] DOCUMENT ID: [id number] TALIB SAN III, MD at 0618 CC: [id number] DICTATION DATE: 01/17/17 1246 CONSERVATION OR HERITAGE ARCHITECT: 01/18/17 0312 DIS IN 01/17/17 [place] [id number] [place] [id number]
== END 2017-01-17 15:00 | disposition home or self-care (01) | DRG 57 ==
LOC: D.ER 13:50 → D.PSYCH 19:27
PROVIDERS: Emergency Medicine; ADMIT Psychiatry & Neurology Psychiatry
DX: G30.9 Alzheimer's disease, unspecified (principal); F02.81 Dementia in other diseases classified elsewhere, unspecified severity, with behavioral disturbance; F50.00 Anorexia nervosa, unspecified; M81.0 Age-related osteoporosis without current pathological fracture; F41.9 Anxiety disorder, unspecified; E78.5 Hyperlipidemia, unspecified; K59.00 Constipation, unspecified; N95.2 Postmenopausal atrophic vaginitis

== ENCOUNTER 2017-01-30 01:05 | Emergency (ER) | payer MEDICARE, OTHER ==
[2017-01-01 15:17] VITALS: BMI 18.3
[~2017-01-30 01:05] MED LIST: ARICEPT5 MG PO; MEGACE ES625 MG/5 M PO; RISPERDAL0.5 MG PO; SENOKOT-S TABLE1 TAB PO
== END 2017-01-30 02:20 | disposition home or self-care (01) ==
LOC: D.ER 01:05
DX: S90.01XA Contusion of right ankle, initial encounter (principal); W06.XXXA Fall from bed, initial encounter; Y93.89 Activity, other specified; Y92.89 Other specified places as the place of occurrence of the external cause; F03.90 Unspecified dementia, unspecified severity, without behavioral disturbance, psychotic disturbance, mood disturbance, and anxiety

== ENCOUNTER 2017-04-16 10:36 | Emergency (ER) | payer MEDICARE, OTHER ==
[2017-01-01 15:17] VITALS: BMI 18.3
== END 2017-04-16 12:45 | disposition home or self-care (01) ==
LOC: D.ER 10:36
DX: S00.03XA Contusion of scalp, initial encounter (principal); W19.XXXA Unspecified fall, initial encounter; Y93.89 Activity, other specified; Y92.129 Unspecified place in nursing home as the place of occurrence of the external cause; F03.90 Unspecified dementia, unspecified severity, without behavioral disturbance, psychotic disturbance, mood disturbance, and anxiety

== ENCOUNTER 2017-04-22 20:04 | Inpatient (IN) | payer MEDICARE, OTHER ==
[~2017-04-22] VITALS: Ht 152.4 cm; Wt 49.9 kg
[2017-04-22 21:03] LABS: BASOPHILS 0.5 % (0-2); EOSINOPHILS 1.4 % (0-7); HEMATOCRIT 35.4 % (36.0-48.0); HEMOGLOBIN 11.8 g/dL (12-16); IMMATURE GRANULOCYTES 2.3 % (0-5); LYMPHOCYTES 13.3 % (15-50); MCH 30.3 pg (26.0-34.0); MCHC 33.3 g/dL (31.0-37.0); MCV 90.8 fL (80.0-100.0); MEAN PLATELET VOLUME 9.2 fL (7.4-10.4); MONOCYTES 10.1 % (2-11); NEUTROPHILS 72.4 % (40-80); RDW 14.6 % (11.5-14.5); WBC 18.8 10x3/uL (4.8-10.8)
[2017-04-22 21:16] LABS: PLATELET COUNT 408 10x3/uL (130-400)
[2017-04-22 22:52] LABS: ALBUMIN 2.3 g/dL (3.4-5.0); ANION GAP 13.4 mmol/L (8-16); BILIRUBIN - TOTAL 0.24 mg/dL (0.2-1.3); CARBON DIOXIDE 25.8 mmol/L (21.0-32.0); CREATININE - SERUM 0.8 mg/dL (0.6-1.3); POTASSIUM - SERUM 4.2 mmol/L (3.5-5.1); PROTEIN - SERUM 7.5 g/dL (6.4-8.2)
[2017-04-22 23:57] VITALS: BMI 21.5
--- NOTE | 2017-04-23 00:33 | NUR ---
ASSESSMENT PER ADMIT PACKET. PT IS CONFUSED TO PLACE, TIME AND SITUATION. PULLED OUT IV. SR UP X2 CALL LIGHT WITHIN REACH FREEMAN MAT IN PLACE AND ALARMS ACTIVATED. DOOR OPENED.
[2017-04-23 04:00] VITALS: BP 145/67
--- NOTE | 2017-04-23 08:00 | NUR ---
AWAKE AND ALERT AT THIS TIME. ALERT TO SELF ONLY. FEEDING SELF WITH MEAL SET UP ASSISTANCE. FREEMAN MAT ALARM ON AND IN USE.
[2017-04-23 08:01] VITALS: BP 141/67
[2017-04-23] MEDS ORDERED: BAYER CHEWABLE81 MG PO (09:45)
[2017-04-23] MEDS ORDERED: RISPERDAL0.25 MG PO (09:46)
[2017-04-23] MEDS ORDERED: MEGACE ES625 MG/5 M PO (09:46)
--- NOTE | 2017-04-23 10:25 | NUR ---
UP TO CHAIR WITH PHYSICAL THERAPY AT THIS TIME. FREEMAN MAT ALARM IN USE FOR FALL PRECAUTIONS.
[2017-04-23 11:27] LABS: BASOPHILS 0.4 % (0-2); EOSINOPHILS 1.2 % (0-7); HEMATOCRIT 37.4 % (36.0-48.0); HEMOGLOBIN 12.4 g/dL (12-16); IMMATURE GRANULOCYTES 3.5 % (0-5); LYMPHOCYTES 13.8 % (15-50); MCHC 33.2 g/dL (31.0-37.0); MCV 90.6 fL (80.0-100.0); MEAN PLATELET VOLUME 9.2 fL (7.4-10.4); MONOCYTES 8.4 % (2-11); NEUTROPHILS 72.7 % (40-80); PLATELET COUNT 464 10x3/uL (130-400); RBC 4.13 10x6/uL (4.00-5.40); RDW 14.4 % (11.5-14.5); WBC 17.1 10x3/uL (4.8-10.8)
[2017-04-23 11:41] LABS: ALBUMIN 2.3 g/dL (3.4-5.0); ANION GAP 15.1 mmol/L (8-16); BILIRUBIN - TOTAL 0.29 mg/dL (0.2-1.3); CALCIUM 9.9 mg/dL (8.5-10.1); CARBON DIOXIDE 26.5 mmol/L (21.0-32.0); CREATININE - SERUM 0.9 mg/dL (0.6-1.3); POTASSIUM - SERUM 3.6 mmol/L (3.5-5.1); PROTEIN - SERUM 7.8 g/dL (6.4-8.2)
[2017-04-23 11:54] VITALS: BP 133/60
--- NOTE | 2017-04-23 12:10 | NUR ---
22G IV SITED TO PT'S LEFT FOREARM X1 ATTEMPT. BRISK BLOOD RETURN PRESENT. WRAPPED WITH KERLIX FOR PROTECTION, PT IS CONFUSED. FREEMAN MAT ALARM ON AND DOOR OPEN. WILL CONTINUE WITH PLAN OF CARE.
[2017-04-23 13:25] VITALS: Ht 152.4 cm; Wt 49.9 kg
--- NOTE | 2017-04-23 13:32 | NUR ---
* Is the patient Alert and Oriented? No 0 * PCP [facility] 0 * Pharmacy [facility] 0 * Preadmission Environment Other 0 * Other Environment [facility] 0 * Facility Name [facility] 0 * List name and contact numbers for known caregivers / representatives who currently or will assist patient after discharge: JAVON (SON)[phone] 0 * Additional services required to return to the preadmission environment? Yes 0 * Can the patient safely return to the preadmission environment? Yes 0 * Has this patient been hospitalized within the prior 30 days at any hospital? No 0 Grand Total: 0 Patient Name: CHAYO GRIMES Admission Status: ER Accout number: [id number] Admission Date: 04-22-2017 : 1935 Admission Diagnosis:PNEUMONIA, UNSPECIFIED ORGANISM Attending: GENNY Current LOS: 1 Anticipated DC Date: Planned Disposition: Home or Self Care Primary Insurance: [facility] Discharge Planning Comments: CM ATTEMPTED TO SPEAK WITH PATIENT ABOUT DISCHARGE PLANNING NEEDS. PATIENT WAS WOULD NOT COMMUNICATE WITH ME AND JUST TOLD ME HER NAME. SHE WAS UNABLE TO ANSWER ANY QUESTIONS SHE JUST HAD A BLANK LOOK ON HER FACE. SHE IS A RESIDENT OF [facility] [place]. I CALLED AND SPOKE WITH LUIS AT THE [facility] AND SHE SAID THAT SHE HAS ALZHEIMER'S. LUIS GAVE ME THE NEXT OF KIN NUMBER. [phone] THE NAME OF JAVON. GOAEDC-[phone] JAVON: [phone] Rock Wool Applicator: Ashlyn Leon
[2017-04-23 16:30] VITALS: BP 126/63
[2017-04-23 19:00] VITALS: BP 116/59
--- NOTE | 2017-04-23 21:49 | NUR ---
REC'D LYING IN BED. ALERT AND ORIENTED X2. DENIED PAIN AT THIS TIME. DENIED FURTHER NEEDS AT THIS TIME. NO DISTRESS NOTED. INSTRUCTED TO CALL IF NEEDED ANYTHING, VERBALIZED UNDERSTANDING. BED LOW, LOCKED, CALL LIGHT IN REACH. WILL CONT TO MONITOR. WILL ADMIN PM/AM MEDS PRESCRIBED
[2017-04-24 04:00] VITALS: BP 145/78
[2017-04-24 05:37] LABS: BASOPHILS 0.4 % (0-2); EOSINOPHILS 0.9 % (0-7); HEMATOCRIT 37.9 % (36.0-48.0); HEMOGLOBIN 12.4 g/dL (12-16); IMMATURE GRANULOCYTES 5.8 % (0-5); MCH 29.6 pg (26.0-34.0); MCHC 32.7 g/dL (31.0-37.0); MCV 90.5 fL (80.0-100.0); MEAN PLATELET VOLUME 9.4 fL (7.4-10.4); MONOCYTES 8.4 % (2-11); NEUTROPHILS 65.5 % (40-80); PLATELET COUNT 479 10x3/uL (130-400); RBC 4.19 10x6/uL (4.00-5.40); RDW 14.6 % (11.5-14.5); WBC 13.9 10x3/uL (4.8-10.8)
--- NOTE | 2017-04-24 05:50 | NUR ---
RESTING QUIETLY RESPIRATIONS WITH EASE AND UNLABORED.
[2017-04-24 05:54] LABS: ALBUMIN 2.4 g/dL (3.4-5.0); ANION GAP 13.1 mmol/L (8-16); BILIRUBIN - TOTAL 0.3 mg/dL (0.2-1.3); CALCIUM 10.5 mg/dL (8.5-10.1); CARBON DIOXIDE 26.2 mmol/L (21.0-32.0); CREATININE - SERUM 0.9 mg/dL (0.6-1.3)
[2017-04-24 05:59] LABS: POTASSIUM - SERUM 4.3 mmol/L (3.5-5.1)
--- NOTE | 2017-04-24 07:15 | NUR ---
SLEEPING AT THIS TIME AND POSITIONED ON RIGHT SIDE. RESPIRATIONS EVEN AND NON LABORED. FREEMAN MAT ALARM ON AND IN USE. CALL LIGHT IN REACH AND DOOR OPEN. WILL CONTINUE WITH PLAN OF CARE.
[2017-04-24 07:52] VITALS: BP 139/68
--- NOTE | 2017-04-24 09:00 | NUR ---
SCHEDULED MEDICATIONS ADMINISTERED WITHOUT DIFFICULTY AT THIS TIME. ASSESSMENT PERFORMED PER FLOWSHEET. FREEMAN MAT ALARM ON AND IN USE. PT FEEDING SELF BREAKFAST AT THIS TIME. CALL LIGHT IN REACH AND DOOR OPEN. WILL CONTINUE WITH PLAN OF CARE.
--- NOTE | 2017-04-24 12:15 | NUR ---
NUTRITION MONITORING & EVAL CHART REVIEWED, PT VISIT. TOLERATING CURRENT DIET. MORE ALERT, FEEDING SELF AND DRINKING ENSURE. RD FOLLOWING
[2017-04-24 12:23] VITALS: BP 106/59
[2017-04-24 16:33] VITALS: BP 143/68
[2017-04-24 20:00] VITALS: BP 107/56
[2017-04-25] VITALS: BP 120/81
--- NOTE | 2017-04-25 01:33 | NUR ---
PT CONFUSED TO PLACE & SITUATION. TALKS TO SELF. INCONTINENT AT TIMES. CONSTANTLY TAKING OFF GOWN. SHORT TERM MEMORY LOSS. FREEMAN ALARM ON. WILL CONTINUE TO MONITOR CLOSELY.
[2017-04-25 04:00] VITALS: BP 128/68
[2017-04-25 05:07] LABS: BASOPHILS 0.1 % (0-2); EOSINOPHILS 0.3 % (0-7); HEMATOCRIT 33.8 % (36.0-48.0); HEMOGLOBIN 11.5 g/dL (12-16); IMMATURE GRANULOCYTES 6.3 % (0-5); LYMPHOCYTES 12.7 % (15-50); MCH 30.2 pg (26.0-34.0); MCV 88.7 fL (80.0-100.0); MEAN PLATELET VOLUME 9.1 fL (7.4-10.4); MONOCYTES 8.5 % (2-11); NEUTROPHILS 72.1 % (40-80); PLATELET COUNT 507 10x3/uL (130-400); RBC 3.81 10x6/uL (4.00-5.40); RDW 14.5 % (11.5-14.5); WBC 14.5 10x3/uL (4.8-10.8)
[2017-04-25 05:33] LABS: ALBUMIN 2.3 g/dL (3.4-5.0); ANION GAP 15.3 mmol/L (8-16); BILIRUBIN - TOTAL 0.25 mg/dL (0.2-1.3); CALCIUM 10.1 mg/dL (8.5-10.1); CARBON DIOXIDE 23.5 mmol/L (21.0-32.0); CREATININE - SERUM 0.9 mg/dL (0.6-1.3); POTASSIUM - SERUM 3.8 mmol/L (3.5-5.1); PROTEIN - SERUM 7.4 g/dL (6.4-8.2)
--- NOTE | 2017-04-25 07:20 | NUR ---
AWAKE AND ALERT THIS AM. CONFUSED TO TIME, PLACE AND SITUATION. PT CLEAN AND DRY AT THIS TIME. FREEMAN MAT ALARM ON AND IN USE. CALL LIGHT IN REACH AND DOOR OPEN. ASSESSMENT PERFORMED PER FLOWSHEET. WILL CONTINUE WITH PLAN OF CARE.
[2017-04-25 08:39] VITALS: BP 158/81
[2017-04-25 12:45] VITALS: BP 132/73
[2017-04-25 15:38] VITALS: BP 140/90
--- NOTE | 2017-04-25 19:36 | NUR ---
TALKING, DENIES NEEDS, BED LOWEST POSITION, SIDE RAILS UP X3, CALL LIGHT IN REACH, WILL CONTINUE TO MONITOR
[2017-04-25 20:00] VITALS: BP 147/77
--- NOTE | 2017-04-25 22:30 | NUR ---
ASSESSED, PT IS RESTING QUIET IN BED WITH NO DISTRESS NOTED. O2 IS ON AT 2 LITERS AND BED ALARM IS IN PLACE. THE BED IS LOW, RAILS UP X'S 2 WITH THE CALL LIGHT AT HAND.
--- NOTE | 2017-04-25 22:30 | NUR ---
ASSESSED, PT IS AWAKE RESTLESS IN BED WITH BED ALARM IN PLACE. ASSISTED NURSE IN REPOSITIONING HER.BED IS LOW, RAILS UP X'S 2 WITH THE CALL LIGHT AT HAND.
--- NOTE | 2017-04-25 23:17 | NUR ---
PULLED UP IN BED AND REPOSITIONED, DENIES NEEDS
[2017-04-26] VITALS: BP 130/76
--- NOTE | 2017-04-26 03:46 | NUR ---
REPOSITIONED, BED CHANGED, DENIES NEEDS, WILL CONTINUE TO MONITOR
[2017-04-26 04:00] VITALS: BP 149/84
[2017-04-26 05:53] LABS: BASOPHILS 0.5 % (0-2); EOSINOPHILS 1.8 % (0-7); HEMATOCRIT 40.3 % (36.0-48.0); HEMOGLOBIN 13.3 g/dL (12-16); IMMATURE GRANULOCYTES 5.7 % (0-5); LYMPHOCYTES 19.2 % (15-50); MEAN PLATELET VOLUME 9.3 fL (7.4-10.4); NEUTROPHILS 62.8 % (40-80); PLATELET COUNT 484 10x3/uL (130-400); RBC 4.43 10x6/uL (4.00-5.40); RDW 14.9 % (11.5-14.5); WBC 12.5 10x3/uL (4.8-10.8)
[2017-04-26 06:19] LABS: ALBUMIN 2.5 g/dL (3.4-5.0); ANION GAP 12.8 mmol/L (8-16); BILIRUBIN - TOTAL 0.2 mg/dL (0.2-1.3); CALCIUM 10.6 mg/dL (8.5-10.1); CARBON DIOXIDE 26.2 mmol/L (21.0-32.0); CREATININE - SERUM 0.8 mg/dL (0.6-1.3); PROTEIN - SERUM 7.7 g/dL (6.4-8.2)
[2017-04-26 08:23] VITALS: BP 146/66
--- NOTE | 2017-04-26 08:30 | NUR ---
ASSESSMENT COMPLETE. SL TO L FA. INCONT OF BOWEL AND BLADDER. FREEMAN MAT IN USE. DROWSY BUT OPEN EYES TO VERBAL STIMULI. REFUSING TO EAT BREAKFAST.
--- NOTE | 2017-04-26 09:15 | NUR ---
UNABLE TO GIVE AM MEDS. NOT ATTEMPTING TO OPEN MOUTH FOR PILLS OR TRYING TO DRINK ANY FLUIDS.
--- NOTE | 2017-04-26 12:00 | NUR ---
SITTING UP IN CHAIR. CONTINUES TO BE NONVERBAL AT THIS TIME. WILL MAKE EYE CONTACT BUT WILL VERBALLY RESPOND WHEN SPOKEN TO.
[2017-04-26 12:01] VITALS: BP 142/68
--- NOTE | 2017-04-26 17:53 | NUR ---
RESTING QUIETLY IN BED.
--- NOTE | 2017-04-26 19:30 | NUR ---
AWAKE AND GIVES EYE CONTACT WHEN SPOKEN TO, BUT DOES NOT VERBALLY RESPOND. IV IN L FA INTACT SL. ON FREEMAN MAT FOR FALL PRECAUTION. ASSESSMENT COMPLETED. WILL CONT TO MONITOR CLOSELY.
[2017-04-26 20:00] VITALS: BP 128/68
--- NOTE | 2017-04-26 21:15 | NUR ---
ADMIN SCHED MEDS WITH PUDDING AND SIPS OF CRANBERRY JUICE, SWALLOWING WITHOUT DIFFICULTY. STATED "RAQUEL" WHEN I ASKED HER NAME AND SHE REPEATED MINE "STAR". OTHERWISE, THERE WAS NO OTHER VERBAL COMMUNICATION. I FED HER THE REST OF PUDDING AND DRANK ALL OF THE JUICE.
[2017-04-27] VITALS: BP 122/62
[2017-04-27 04:00] VITALS: BP 123/69
--- NOTE | 2017-04-27 04:25 | NUR ---
SPECIAL COLLECTIONS LIBRARIAN LEAVING ROOM. ADMIN EYE DROPS TO RIGHT EYE PER ORDER.
[2017-04-27 04:37] LABS: BASOPHILS 0.8 % (0-2); EOSINOPHILS 1.5 % (0-7); HEMOGLOBIN 11.8 g/dL (12-16); IMMATURE GRANULOCYTES 5.6 % (0-5); LYMPHOCYTES 19.2 % (15-50); MCH 29.6 pg (26.0-34.0); MCHC 32.8 g/dL (31.0-37.0); MCV 90.2 fL (80.0-100.0); MEAN PLATELET VOLUME 8.8 fL (7.4-10.4); MONOCYTES 10.6 % (2-11); NEUTROPHILS 62.3 % (40-80); PLATELET COUNT 456 10x3/uL (130-400); RBC 3.99 10x6/uL (4.00-5.40); RDW 14.6 % (11.5-14.5); WBC 10.6 10x3/uL (4.8-10.8)
[2017-04-27 04:58] LABS: ALBUMIN 2.4 g/dL (3.4-5.0); ANION GAP 12.9 mmol/L (8-16); BILIRUBIN - TOTAL 0.29 mg/dL (0.2-1.3); CALCIUM 10.3 mg/dL (8.5-10.1); CARBON DIOXIDE 26.3 mmol/L (21.0-32.0); CREATININE - SERUM 0.9 mg/dL (0.6-1.3); POTASSIUM - SERUM 4.2 mmol/L (3.5-5.1); PROTEIN - SERUM 7.4 g/dL (6.4-8.2)
--- NOTE | 2017-04-27 07:30 | NUR ---
ASSESSMENT COMPLETE. SL TO L FA PATENT. NONVERBAL. INCONT OF BOWEL AND BLADDER. FREEMAN MAT IN USE.
[2017-04-27 08:24] VITALS: BP 141/65
--- NOTE | 2017-04-27 09:15 | NUR ---
DOES NOT WANT TO TAKE MORNING MEDS. CALL LIGHT IN REACH.
--- NOTE | 2017-04-27 10:30 | NUR ---
LOVENOX AND EYE DROPS ADMINISTERED. CALL LIGHT IN REACH.
--- NOTE | 2017-04-27 12:09 | NUR ---
SITTING UP IN CHAIR.
[2017-04-27 12:57] VITALS: BP 118/68
--- NOTE | 2017-04-27 14:20 | NUR ---
NO NEEDS VOICED AT THIS ITME. CALL LIGHT IN REACH.
--- NOTE | 2017-04-27 14:31 | NUR ---
RT IN ROOM TO DO BREATHING TREATMENT.
[2017-04-27 15:58] VITALS: BP 139/65
--- NOTE | 2017-04-27 16:21 | NUR ---
NO NEEDS VOICED AT THIS TIME.C ALL LIGHT IN REACH.
[2017-04-27 20:00] VITALS: BP 122/61
--- NOTE | 2017-04-27 21:22 | NUR ---
REC'D LYING IN BED. ALERT AND ORIENTED X2. NO DISTRESS NOTED. DENIED PAIN AT THIS TIME. TEMP IS 100.1 AXILLARY. WILL CONT TO MONITOR THROUGHOUT NIGHT. ADMIN PM/AM MEDS. INSTRUCTED TO CALL LIF NEEDED ANYTHING. BED LOW, LOCKED, CALL LIGHT IN REACH, ALARM ON.
--- NOTE | 2017-04-27 22:30 | NUR ---
RECITED IV TO RIGHT FA, PATENT. DC'D IV TO LEFT FA, CATHETER STILL INTACT. TOLERATED WELL. WILL CONT TO MONITOR. BED LOW, LOCKED, CALL LIGHT IN REACH, ALARM ON.
[2017-04-28] VITALS: BP 152/57
--- NOTE | 2017-04-28 03:29 | NUR ---
RESTING COMFORTABLY. TEMP DROPPED TO 99.0 AX. NO DISTRESS NOTED, WILL CONT TO MONITOR. BED LOW, LOCKED, CALL LIGHT IN REACH, ALARM ON.
--- NOTE | 2017-04-28 03:52 | NUR ---
EYES CLOSED RESPIRATIONS WITH EASE AND UNLABORED.
[2017-04-28 04:00] VITALS: BP 167/81
[2017-04-28 04:49] LABS: BASOPHILS 0.5 % (0-2); EOSINOPHILS 1.7 % (0-7); HEMATOCRIT 37.9 % (36.0-48.0); HEMOGLOBIN 12.6 g/dL (12-16); IMMATURE GRANULOCYTES 3.5 % (0-5); MCH 29.9 pg (26.0-34.0); MCHC 33.2 g/dL (31.0-37.0); MCV 89.8 fL (80.0-100.0); MONOCYTES 9.1 % (2-11); NEUTROPHILS 60.2 % (40-80); PLATELET COUNT 505 10x3/uL (130-400); RBC 4.22 10x6/uL (4.00-5.40); RDW 14.8 % (11.5-14.5)
[2017-04-28 04:53] LABS: WBC 13.3 10x3/uL (4.8-10.8)
[2017-04-28 05:18] LABS: ALBUMIN 2.6 g/dL (3.4-5.0); ANION GAP 15.5 mmol/L (8-16); BILIRUBIN - TOTAL 0.14 mg/dL (0.2-1.3); CALCIUM 10.5 mg/dL (8.5-10.1); CARBON DIOXIDE 24.5 mmol/L (21.0-32.0); CREATININE - SERUM 0.9 mg/dL (0.6-1.3); PROTEIN - SERUM 7.7 g/dL (6.4-8.2)
--- NOTE | 2017-04-28 07:30 | NUR ---
ASSESSMENT COMPLETE. SL TO R FA. INCONT OF BOWEL AND BLADDER. FREEMAN MAT IN USE.
[2017-04-28 08:09] VITALS: BP 160/72
[2017-04-28 11:33] VITALS: BP 133/66
--- NOTE | 2017-04-28 11:35 | NUR ---
SITTING UP IN CHAIR.
--- NOTE | 2017-04-28 15:00 | NUR ---
RESTING QUIETLY IN BED. NO CHANGES NOTED AT PRESENT.
[2017-04-28 15:28] VITALS: BP 128/68
--- NOTE | 2017-04-28 18:00 | NUR ---
YELLING OUT FOR ALEJANDRO. FREEMAN MAT IN USE. DOOR OPEN.
[2017-04-28 20:00] VITALS: BP 115/65
[2017-04-29] VITALS: BP 102/60
[2017-04-29 04:00] VITALS: BP 110/66
[2017-04-29 08:09] VITALS: BP 136/63
--- NOTE | 2017-04-29 08:55 | NUR ---
AWAKE AND ALERT. ORIENTED TO SELF ONLY THIS AM. REORIENTED PER STAFF WITHOUT SUCESS. LUNGS ARE CLEAR BILATERALLY, NO COUGH NOTED AND PATIENT DENIES COUGHING. WILL MONITOR. SKIN IS INTACT WITHOUT REDNESS. IV TO RIGHT FOREARM IS PATENT WITHOUT REDNESS AT INSERTION SITE. PATIENT ATE ALMOST ALL OF BREAKFAST TRAY BEFORE ORDER FOR NPO WAS RECEIVED. INCONTINENT OF URINE. CHANGED AND SKIN CARE PER STAFF.
--- NOTE | 2017-04-29 10:00 | NUR ---
UP IN CHAIR AT BEDSIDE PER PT. CONTINUES CONFUSED BUT ROUSES TO VERBAL AND TACTILE STIMULATION. TOOK AM MEDS WHOLE IN PUDDING.
[2017-04-29 11:16] LABS: BASOPHILS 0.4 % (0-2); EOSINOPHILS 0.9 % (0-7); HEMATOCRIT 40.7 % (36.0-48.0); HEMOGLOBIN 13.1 g/dL (12-16); IMMATURE GRANULOCYTES 2.1 % (0-5); MCH 29.7 pg (26.0-34.0); MCHC 32.2 g/dL (31.0-37.0); MEAN PLATELET VOLUME 9.1 fL (7.4-10.4); MONOCYTES 14.8 % (2-11); NEUTROPHILS 66.8 % (40-80); PLATELET COUNT 466 10x3/uL (130-400); RBC 4.41 10x6/uL (4.00-5.40)
[2017-04-29 11:37] LABS: MCV 92.3 fL (80.0-100.0)
[2017-04-29 11:46] LABS: ALBUMIN 2.8 g/dL (3.4-5.0); ANION GAP 10.9 mmol/L (8-16); BILIRUBIN - TOTAL 0.1 mg/dL (0.2-1.3); CALCIUM 10.4 mg/dL (8.5-10.1); CARBON DIOXIDE 30.3 mmol/L (21.0-32.0); CREATININE - SERUM 0.8 mg/dL (0.6-1.3); POTASSIUM - SERUM 4.2 mmol/L (3.5-5.1); PROTEIN - SERUM 7.2 g/dL (6.4-8.2)
[2017-04-29 11:59] VITALS: BP 140/63
--- NOTE | 2017-04-29 12:00 | NUR ---
SITTING UP IN BED EATING BREAKFAST PER SELF. DENIES NEEDS.
[2017-04-29 15:19] VITALS: BP 130/64
--- NOTE | 2017-04-29 16:02 | NUR ---
RESTING QUIETLY WITH EYES CLOSED.
--- NOTE | 2017-04-29 19:53 | NUR ---
ATE ALMOST ALL OF SUPPER WITH SET UP ASSIST. INCONTINENT OF URINE AGAIN, SKIN CARE PER STAFF. REPOSITIONED IN BED FOR COMFORT.
[2017-04-29 20:00] VITALS: BP 115/55
--- NOTE | 2017-04-29 20:00 | NUR ---
PATIENT RESTING IN BED WITH EYES CLOSED AND NO VISIBLE SIGNS OF DISTRESS. BED IN LOWEST POSITION, CALL LIGHT WITHIN REACH, AND BED ALARM ON.
[2017-04-30] VITALS: BP 134/63
[2017-04-30 04:00] VITALS: BP 133/67
[2017-04-30 06:20] LABS: BASOPHILS 0.2 % (0-2); EOSINOPHILS 0.7 % (0-7); HEMOGLOBIN 11.4 g/dL (12-16); IMMATURE GRANULOCYTES 1.4 % (0-5); LYMPHOCYTES 11.3 % (15-50); MCH 29.2 pg (26.0-34.0); MCHC 31.7 g/dL (31.0-37.0); MCV 92.1 fL (80.0-100.0); MEAN PLATELET VOLUME 9.1 fL (7.4-10.4); MONOCYTES 8.3 % (2-11); NEUTROPHILS 78.1 % (40-80); PLATELET COUNT 501 10x3/uL (130-400); RBC 3.91 10x6/uL (4.00-5.40); RDW 15.2 % (11.5-14.5)
[2017-04-30 06:41] LABS: WBC 18.3 10x3/uL (4.8-10.8)
[2017-04-30 06:55] LABS: ANION GAP 12.6 mmol/L (8-16); CALCIUM 9.7 mg/dL (8.5-10.1); CARBON DIOXIDE 26.5 mmol/L (21.0-32.0); CREATININE - SERUM 0.8 mg/dL (0.6-1.3); PHOSPHOROUS 3.1 mg/dL (2.5-4.9); POTASSIUM - SERUM 4.1 mmol/L (3.5-5.1)
[2017-04-30 08:07] VITALS: BP 132/62
--- NOTE | 2017-04-30 08:30 | NUR ---
LYING IN BED,WITHOUT DISTRESS.CALL LIGHT IN REACH. DOOR OPEN
[2017-04-30] MEDS ORDERED: BENZONATATE200 MG PO (10:54)
[2017-04-30] MEDS ORDERED: ROBITUSSIN DM 110 ML PO (10:54)
[2017-04-30] MEDS ORDERED: OMNICEF300 MG PO (10:55)
[2017-04-30] MEDS ORDERED: Levaquin PO (10:55)
[2017-04-30] MEDS ORDERED: FLORAJEN3 CAPS460 MG PO (10:55)
[2017-04-30] MEDS ORDERED: CORTISPORIN EY7.5 ML RIGHT EYE (10:55)
--- NOTE | 2017-04-30 13:00 | NUR ---
Patient being discharged today back to the [facility] via [facility] personal van.
--- NOTE | 2017-04-30 13:02 | NUR ---
attempted to call andreea wheat patient's next of kin to tell about discharge, but there was no answer.
== END 2017-04-30 13:00 | disposition other institution (70) | DRG 194 ==
LOC: D.ER 20:04 → D.MS 22:05
PROVIDERS: Emergency Medicine; Family Medicine; Internal Medicine Pulmonary Disease; Physician Assistant; ADMIT Emergency Medicine
DX: J18.1 Lobar pneumonia, unspecified organism (principal); F02.81 Dementia in other diseases classified elsewhere, unspecified severity, with behavioral disturbance; G30.9 Alzheimer's disease, unspecified; M81.0 Age-related osteoporosis without current pathological fracture; F41.9 Anxiety disorder, unspecified; E78.5 Hyperlipidemia, unspecified; R13.12 Dysphagia, oropharyngeal phase; H10.9 Unspecified conjunctivitis; D64.9 Anemia, unspecified